=== PATIENT | female | born 1965 | race Caucasian/White ===

== ENCOUNTER 2016-05-04 09:21 | Day surgery (SDC) | payer OTHER ==
[2016-05-04] MEDS ORDERED: LIDOCAINE 2% MDV (20MG/ML) 20ML VIAL IV ONE (14:00)
[2016-05-04] MEDS ORDERED: PROPOFOL 10 MG/ML VIAL IV ONE (14:00)
[2016-05-04] MEDS ORDERED: MIDAZOLAM HCL 2MG/2ML VIAL IV ONE (14:00)
--- NOTE | 2016-05-08 07:20 | Operative Note ---
DATE OF SURGERY: OPERATION: COLONOSCOPY with cold forceps polypectomy x2. PREOPERATIVE DIAGNOSIS: Abdominal pain and change in bowel habits. POSTOPERATIVE DIAGNOSES: 1. Colon polyps, status post cold forceps polypectomy x2. 2. Sigmoid diverticulosis. 3. Melanosis coli. PROCEDURE: After informed consent was obtained from the patient, she was placed in the left lateral decubitus position in the endoscopy suite, sedated and monitored by the department of anesthesia. Digital rectal exam was unremarkable. A well-lubricated KCP706 colonoscope was inserted into the rectum and advanced to the cecum. Preparation quality was good to excellent. The cecum, terminal ileum, ascending colon, transverse colon, descending colon, sigmoid colon, and rectum were carefully inspected. There were 2 diminutive polyps, one in the transverse colon and one in the descending colon, each removed in piecemeal fashion with a cold forceps with minimal bleeding noted. There are also changes particularly in the left colon consistent with melanosis coli and there were scattered sigmoid diverticula. No other obstructing lesions or mass lesions or abnormalities were otherwise identified. Forward and J-turn views of the rectum and anorectum were unremarkable. The endoscope was straightened, the rectal ampulla deflated, and the endoscope was removed. RECOMMENDATIONS: The patient should follow a high-fiber diet and resume her medications. I would recommend a repeat exam in 5-10 years pending tissue histology. As always, thank you for allowing me to participate in the healthcare of your patients. Pedro Terrell DO CC: Dr. Jeovanny RUANO
== END 2016-05-04 12:20 | disposition home or self-care (01) ==
LOC: HOP 09:21
PROVIDERS: ATTEND Internal Medicine Gastroenterology
DX: D12.3 Benign neoplasm of transverse colon (principal); D12.5 Benign neoplasm of sigmoid colon; K57.30 Diverticulosis of large intestine without perforation or abscess without bleeding; E03.9 Hypothyroidism, unspecified; M79.7 Fibromyalgia

== ENCOUNTER 2018-12-12 18:24 | Emergency (ER) | payer BC ==
--- NOTE | 2018-12-12 18:52 | Emergency Department Record ---
History of Present Illness - General Chief Complaint: Trauma Stated Complaint: THROWN FROM HER HORSE Time Seen by Provider: 12/12/18 18:33 Source: Patient Mode of Arrival: Ambulatory Limitations: No limitations - History of Present Illness Initial Comments: pt was thrown off of her horse 15-20 ft into a metal wall. she hit her head and possibly her back. she was wearing a helmet which is broken. she has numbness in both legs. she has pain in her lower back, both hips and thighs. Complaint: Injury -: Minutes(s) Loss of Consciousness: No Location: Head, Neck, Back, Pelvis Location - Extremities: Left: Thigh, Right: Thigh Consistency: Constant Context: Animal related injury Associated Symptoms: Denies other symptoms - Related Data Allergies Allergy/AdvReac Type Severity Reaction Status Date / Time NSAIDS (Non-Steroidal Allergy Severe ANAPHYLAXIS Unverified 11/27/16 16:34 Anti-Inflamma sulfamethoxazole Allergy Severe ANAPHYLAXIS Unverified 11/27/16 16:34 [From Bactrim] trimethoprim [From Bactrim] Allergy Severe ANAPHYLAXIS Unverified 11/27/16 16:34 venom-honey bee Allergy Severe ANAPHYLAXIS Unverified 11/27/16 16:34 latex Allergy Intermediate RASH Unverified 11/27/16 16:34 almond Allergy ANAPHYLAXIS Unverified 11/12/17 14:38 erythromycin base Allergy HIVES Verified 12/12/18 19:46 [From E-Mycin] tree nut Allergy ANAPHYLAXIS Unverified 11/12/17 14:38 codeine AdvReac VOMITING Verified 12/12/18 19:46 pseudoephedrine AdvReac ALTERED Verified 12/12/18 19:46 [From Sudafed] MENTAL STATUS Review of Systems Reviewed: No additional complaints except as noted below Constitutional: Reports: As per HPI. Denies: Chills, Fever, Malaise, Night sweats, Weakness, Weight change Eyes: Reports: As per HPI. Denies: Eye discharge, Eye pain, Photophobia, Vision change ENT: Reports: As per HPI. Denies: Congestion, Dental pain, Ear pain, Epistaxis, Hearing loss, Throat pain Respiratory: Reports: As per HPI. Denies: Cough, Dyspnea, Hemoptysis, Stridor, Wheezes Cardiovascular: Reports: As per HPI. Denies: Arrhythmia, Chest pain, Dyspnea on exertion, Edema, Murmurs, Orthopnea, Palpitations, Paroxysmal nocturnal dyspnea, Rheumatic Fever, Syncope Endocrine: Reports: As per HPI. Denies: Fatigue, Heat or cold intolerance, Polydipsia, Polyuria Gastrointestinal: Reports: As per HPI. Denies: Abdominal pain, Constipation, Diarrhea, Hematemesis, Hematochezia, Melena, Nausea, Vomiting Genitourinary: Reports: As per HPI. Denies: Abnormal menses, Discharge, Dyspareunia, Dysuria, Frequency, Hematuria, Incontinence, Retention, Urgency Musculoskeletal: Reports: As per HPI. Denies: Arthralgia, Back pain, Gout, Joint swelling, Myalgia, Neck pain Skin: Reports: As per HPI. Denies: Bruising, Change in color, Change in hair/nails, Lesions, Pruritus, Rash Neurological: Reports: As per HPI. Denies: Abnormal gait, Confusion, Headache, Numbness, Paresthesias, Seizure, Tingling, Tremors, Vertigo, Weakness Psychiatric: Reports: As per HPI. Denies: Anxiety, Auditory hallucinations, Depression, Homicidal thoughts, Suicidal thoughts, Visual hallucinations Hematological/Lymphatic: Reports: As per HPI. Denies: Anemia, Blood Clots, Easy bleeding, Easy bruising, Swollen glands Past Medical History - SOCIAL HISTORY Smoking Status: Former smoker - RESPIRATORY Hx Respiratory Disorders: No - CARDIOVASCULAR Hx Cardio Disorders: Yes - NEURO Hx Neuro Disorders: Yes Hx Headaches: Yes - GI Hx GI Disorders: Yes Hx Abdominal Pain: Yes Hx Reflux: Yes Hx Irritable Bowel: Yes Hx Nausea/Vomiting: Yes Hx Rectal Bleeding: Yes - Hx Genitourinary Disorders: Yes Hx UTI: Yes - ENDOCRINE Hx Endocrine Disorders: Yes Hx Thyroid Disease: Yes - MUSCULOSKELETAL Hx Musculoskeletal Disorders: Yes Hx Fibromyalgia: Yes - PSYCH Hx Psych Problems: No - HEMATOLOGY/ONCOLOGY Hx Hematology/Oncology Disorders: Yes Hx Cancer: Yes (BCC-face) Family Medical History Hx Cancer: Grandparents Hx Heart Disease: Mother Hx Seizures: Brother/Sister Physical Exam - General General Appearance: Alert, Oriented x3, Cooperative, No acute distress - Head Head exam: Normal inspection Head exam detail: General tenderness - Eye Eye exam: Normal appearance, PERRL, EOMI Pupils: Normal accommodation - ENT ENT exam: Normal exam, Mucous membranes moist, Normal external ear exam, Normal orophraynx Ear exam: Normal external inspection. negative: External canal tenderness Nasal Exam: Normal inspection. negative: Discharge, Sinus tenderness Mouth exam: Normal external inspection, Tongue normal Teeth exam: Normal inspection. negative: Dental caries Throat exam: Normal inspection. negative: Tonsillar erythema, Tonsillar exudate - Neck Neck exam: Normal inspection, Full ROM, Tenderness - Respiratory Respiratory exam: Normal lung sounds bilaterally. negative: Respiratory distress - Cardiovascular Cardiovascular Exam: Regular rate, Normal rhythm, Normal heart sounds - GI/Abdominal GI/Abdominal exam: Soft, Normal bowel sounds. negative: Tenderness - Rectal Rectal exam: Deferred - exam: Deferred - Extremities Extremities exam: Normal inspection, Full ROM, Normal capillary refill, Tenderness (upper thighs) - Back Back exam: Reports: Full ROM, Tenderness (lower back), Other (pelvis tenderness). Denies: Muscle spasm, Rash noted - Neurological Neurological exam: Alert, CN II-XII intact, Normal gait, Oriented X3, Other (decreased sensation) - Psychiatric Psychiatric exam: Normal affect, Normal mood - Skin Skin exam: Dry, Intact, Normal color, Warm Course - Reevaluation(s) Reevaluation #1: 12/12/18 20:30 fxs of r sacral ala 2,3,4 and ll inf pubic rami. surrounding edema. other cts neg. pts bilateral numbness has improved. Disposition Disposition: Transfer Clinical Impression: Sacral fracture Qualifiers: Encounter type: initial encounter Zone of sacrum fracture: zone III of sacrum Fracture type: closed Fracture alignment: minimally displaced Qualified Code(s): S32.131A - Minimally displaced Zone III fracture of sacrum, initial encounter for closed fracture Inferior pubic ramus fracture Qualifiers: Encounter type: initial encounter Fracture type: closed Laterality: left Qualified Code(s): S32.592A - Other specified fracture of left pubis, initial encounter for closed fracture Disposition: Home, Self-Care Transfer To: [facility] Reason For Transfer: trauma Accepting Physician: mian mac and nichelle Time Discussed w/Accepting Physician: 20:42 Forms: Patient Portal Access Quality - Quality Measures Quality Measures: N/A - Blood Pressure Screening Does Patient Have Any of the Following: No Blood Pressure Classification: Hypertensive Reading Systolic Measurement: 145 Diastolic Measurement: 78 Screening for High Blood Pressure: < First Hypertensive BP, F/U Documented > [G8950] First Hypertensive Follow-up Interventions: Follow-up with rescreen GT 1 day and LT 4 weeks.
[2018-12-12] MEDS ORDERED: HYDROMORPHONE HCL 2 MG/ML VIAL IVP ONE ×2 (19:02→20:57)
[2018-12-12] MEDS ORDERED: PROMETHAZINE HCL 6.25 MG in 0.9 % SODIUM CHLORIDE 100ML 100 ML IVPB ONE (19:22)
--- NOTE | 2018-12-12 19:45 | CT SCAN REPORT ---
EXAMINATION: HEAD WO CONTRAST EXAM DATE: 12/12/2018 7:28 PM TECHNIQUE: Noncontrast axial images were obtained to the brain. INDICATION: trauma COMPARISON: None. ENCOUNTER: Not applicable HAND DOMINANCE: Unknown FINDINGS: The brain parenchyma is unremarkable for age. No loss of lewis-white matter differentiation or sulcal effacement to indicate acute infarction. No evidence of intracranial mass. The ventricles, sulci, and subarachnoid spaces are unremarkable for age. The basal cisterns are paten t and there is no midline shift or herniation. No intra-axial or extra-axial fluid collection. No evidence of intracranial hemorrhage. The paranasal sinuses, mastoid air cells, and orbits are unremarkable. The calvarium is intact. IMPRESSION: 1. No CT evidence of intracranial hemorrhage or acute intracranial abnormality. Dictated by: ROBERT BROOKS MD on 12/12/2018 7:41 PM. .
--- NOTE | 2018-12-12 19:52 | CT SCAN REPORT ---
EXAMINATION: CT Lumbar Spine without Contrast EXAM DATE: 12/12/2018 7:28 PM TECHNIQUE: Standard protocol CT images were performed of the lumbar spine without contrast. Sagittal and coronal 2-D images were reconstructed. INDICATION: trauma COMPARISON: None ENCOUNTER: Not applicable FINDINGS: No fracture. Mild lumbar levocurvature. Alignment is otherwise unremarkable. Several punctate nonobstructive left renal calcifications are noted (602:40) No fractures are present . L1-2: Unremarkable. L2-3: Unremarkable. L3-4: Unremarkable. L4-5: Unremarkable. L5-S1: Unremarkable. IMPRESSION: 1. No fracture. 2. Mild lumbar levocurvature is most commonly due to scoliosis or strain 3. Nonobstructive nephrolithiasis Dictated by: ROBERT BROOKS MD on 12/12/2018 7:45 PM. .
--- NOTE | 2018-12-12 20:09 | CT SCAN REPORT ---
EXAMINATION: CT of the Pelvis without Intravenous Contrast. EXAM DATE: 12/12/2018 7:28 PM TECHNIQUE: A standard CT pelvis protocol was performed without intravenous contrast. Sagittal and cor onal images were reconstructed. INDICATION: trauma Technologist note: Fall from horse, right hip and pelvis pain COMPARISON: None ENCOUNTER: Not applicable FINDINGS: Gastrointestinal: Included large and small bowel segments in the pelvis are unremarkable. Reproductive Organs: Uterus is absent Lymphatic System: There is no adenopathy within the pelvis. Vasculature: The iliac arteries have a normal caliber. Peritoneum: There is no free fluid within the pelvis. Retroperitoneum: Right pelvic sidewall edema adjacent to the sacral fractures. IMPRESSION: Minimally displaced fractures of the right sacral ala 2, 3, and 4. Nondisplaced fracture of the left inferior pubic ramus. There is mild swelling of the right piriformis muscle. Dictated by: Jeaneth Burgess MD on 12/12/2018 7:59 PM. .
--- NOTE | 2018-12-12 20:15 | CT SCAN REPORT ---
EXAMINATION: CT Cervical Spine without IV Contrast EXAM DATE: 12/12/2018 7:28 PM TECHNIQUE: Standard protocol cervical spine CT imaging was performed without intravenous contrast. Co hailey and sagittal images were reconstructed. INDICATION: trauma COMPARISON: None ENCOUNTER: Not applicable FINDINGS: There is normal cervical alignment, curvature, and vertebral body heights. Moderate narrowing of the C5-6 disc space and mild narrowing at C4-5. Facet joints are aligned normally. The craniocervical jimi ction is normal. Paraspinal soft tissues are unremarkable. IMPRESSION: No evidence of fracture or malalignment of the cervical spine. Moderate degenerative changes are present. Dictated by: Jeaneth Burgess MD on 12/12/2018 8:08 PM. .
[2018-12-12 21:00] LABS: HEMATOCRIT 41.6 % (35.0-47.0); HEMOGLOBIN 13.6 gm/dl (11.6-16.0); MEAN CELL VOLUME 96.5 fl (81-97); MEAN CORPUSCULAR HEMOGLOBIN 31.6 pg (27-33); MEAN CORPUSCULAR HGB CONC 32.7 g/dl (32-36); MEAN PLATELET VOLUME 10.7 fl (7.4-10.4); PLATELET COUNT 217 K/uL (130-400); RED BLOOD COUNT 4.31 M/uL (3.80-5.40); RED CELL DISTRIBUTION WIDTH 12.6 % (11.5-14.5); WHITE BLOOD COUNT W/O DIFF 6.8 K/uL (4.2-12.2)
[2018-12-12 21:03] LABS: BLOOD UREA NITROGEN 20 mg/dL (6-20); EST GLOMERULAR FILTRATION RATE > 60 mL/min
[2018-12-12 21:06] LABS: GLUCOSE,RANDOM 156 mg/dL (74-109)
[2018-12-12 21:12] LABS: BASO % 0.2 % (0-6); EOS % 0.3 % (0-6); LYMPH % 7.2 % (16-45); MEAN CELL VOLUME 96.2 fl (81-97); MEAN CORPUSCULAR HEMOGLOBIN 31.3 pg (27-33); MEAN CORPUSCULAR HGB CONC 32.5 g/dl (32-36); MEAN PLATELET VOLUME 10.2 fl (7.4-10.4); MONO % 6.9 % (0-9); PLATELET COUNT 195 K/uL (130-400); RED BLOOD COUNT 4.16 M/uL (3.80-5.40); RED CELL DISTRIBUTION WIDTH 12.5 % (11.5-14.5); WHITE BLOOD COUNT W/O DIFF 14.4 K/uL (4.2-12.2)
== END 2018-12-12 21:11 | disposition home or self-care (01) ==
LOC: ER 18:24
DX: S32.131A Minimally displaced Zone III fracture of sacrum, initial encounter for closed fracture (principal); S32.592A Other specified fracture of left pubis, initial encounter for closed fracture; S09.90XA Unspecified injury of head, initial encounter; V80.010A Animal-rider injured by fall from or being thrown from horse in noncollision accident, initial encounter; Z87.891 Personal history of nicotine dependence
CPT/HCPCS: 99285 ×2; 96365; 96375; 80048; 36416; 82948; 85027; 72125; 70450; 72131; 72192; J1170; J2550